=== PATIENT | female | born 1980 | race Caucasian/White ===

== ENCOUNTER 2021-07-12 09:54 | Emergency (ER) | payer SELFPAY ==
[2021-07-12] MEDS ORDERED: LIDOCAINE 4% PATCH ONE (10:56)
[2021-07-12] MEDS ORDERED: CYCLOBENZAPRINE 10 MG TAB ONE (10:56)
[2021-07-12] MEDS ORDERED: KETOROLAC 30 MG/ML INJ ONE (10:56)
--- NOTE | 2021-07-12 11:50 | RAD REPORT ---
EXAM DESCRIPTION: RAD - Lumbar Spine 3 Views - 07/12/2021 11:39 am CLINICAL HISTORY: PAIN COMPARISON: No comparisons FINDINGS: A three-view lumbar spine examination was performed. Lumbar bodies are normal in height and alignment. No fracture or acute bony process seen. No disc spa ce narrowing. Lowest lumbar level is partially sacralized. No pars defects identified. IMPRESSION: Negative Lumbar Spine examination for acute or significant finding.
--- NOTE | 2021-07-12 12:53 | ER ---
Nurse's Notes [facility] Name: Rylee Red Age: 40 yrs Sex: Female : 1980 Arrival Date: 07/12/2021 Time: 09:57 Bed 12 Private MD: Diagnosis: Low back pain Presentation: 07/12 10:17 Chief complaint: Patient states: Right hip pain x 4 days; states today had bent over to vg1 help pt with brief and upon standing felt a sharp pain in back. Coronavirus screen: Vaccine status: Patient reports receiving the 2nd dose of the covid vaccine. Client denies travel out of the [place] in the last 14 days. Ebola Screen: Patient denies exposure to infectious person. Patient denies travel to an Ebola-affected area in the 21 days before illness onset. Initial Sepsis Screen: Does the patient meet any 2 criteria? No. Patient's initial sepsis screen is negative. Does the patient have a suspected source of infection? No. Patient's initial sepsis screen is negative. Risk Assessment: Do you want to hurt yourself or someone else? Patient reports no desire to harm self or others. Onset of symptoms was July 12, 2021. 10:17 Method Of Arrival: Ambulatory vg1 10:17 Acuity: DMITRY 4 vg1 Triage Assessment: 10:18 General: Appears uncomfortable, Behavior is calm, cooperative. Pain: Complains of pain vg1 in back Pain currently is 8 out of 10 on a pain scale. Musculoskeletal: Circulation, motion, and sensation intact. 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 - Social history:: Smoking status: Patient/guardian denies using tobacco, the patient reports quitting approximately 6 years ago. Screenin:15 Abuse screen: Denies threats or abuse. Denies injuries from another. Nutritional ss screening: No deficits noted. Tuberculosis screening: Never had TB. Fall Risk None identified. Assessment: 13:26 Reassessment: Patient appears in no apparent distress at this time. Patient and/or ss family updated on plan of care and expected duration. Pain level reassessed. Patient is alert, oriented x 3, equal unlabored respirations, skin warm/dry/pink. Neuro: Nelson Agitation-Sedation Scale (RASS): 0 - Alert and Calm Level of Consciousness is awake, alert, obeys commands. Vital Signs: 10:17 BP 149 / 98; Pulse 76; Resp 16; Temp 98.1; Pulse Ox 100% on R/A; Weight 70.76 kg; vg1 Height 5 ft. 7 in. (170.18 cm); Pain 8/10; 10:17 Body Mass Index 24.43 (70.76 kg, 170.18 cm) vg1 ED Course: 09:57 Patient arrived in ED. ds1 10:18 Triage completed. vg1 10:18 Arm band placed on. vg1 10:29 Augusto Kendrick NP is PHCP. pm1 10:29 Maria Luisa Juarez MD is Attending Physician. pm1 10:39 Abena Paulino RN is Primary Nurse. ss 11:15 Patient has correct armband on for positive identification. Bed in low position. Call ss light in reach. 11:15 No provider procedures requiring assistance completed. Patient did not have IV access ss during this emergency room visit. 11:41 Lumbar Spine (3 Views) XRAY In Process Unspecified. EDMS Administered Medications: 10:59 Drug: Lidoderm Patch 5 % (700 mg/patch) 1 patches {Note: 4% as available from pharmacy.} Route: Topical; Site: affected area; 10:59 Drug: Flexeril (cyclobenzaprine) 10 mg Route: PO; ss 13:25 Follow up: Response: No adverse reaction; Pain is decreased ss 10:59 Drug: Ketorolac 60 mg Route: IM; Site: left gluteus; ss 13:25 Follow up: Response: No adverse reaction; Pain is decreased ss Medication: 11:15 VIS not applicable for this client. ss Outcome: 11:15 Discharged to home ambulatory. ss 11:15 Condition: good 11:15 Discharge instructions given to patient, family, Instructed on discharge instructions, follow up and referral plans. medication usage, Demonstrated understanding of instructions, follow-up care, medications, Prescriptions given X 3. 12:52 Discharge ordered by . pm1 13:27 Patient left the ED. ss Signatures: Dispatcher [employer] EDMS HartleyRonni ds1 Abena Paulino, RN RN ss Augusto Kendrick, FURRIER SHOP SUPERVISOR FURRIER SHOP SUPERVISOR pm1 Janeth Quevedo RN RN vg1
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
[2021-07-12 13:33] VITALS: BP 149/98; TEMP 98.1; O2SAT 100
== END 2021-07-12 13:27 | disposition home or self-care (01) ==
LOC: ER 09:54
DX: M54.50 Low back pain, unspecified (principal); Z88.0 Allergy status to penicillin
CPT/HCPCS: 72100; 96372; 99283; J2001